=== PATIENT | female | born 2000 | race Two or more races ===

== ENCOUNTER 2023-03-28 20:16 | Emergency (ER) | payer OTHER, BC, MEDICAID, SELFPAY ==
[2023-03-28 20:21] VITALS: BP 122/84; PULSE 73; RESP 18; TEMP 36.6; O2SAT 100
--- NOTE | 2023-03-28 20:21 | ED_ITS ---
HPI - General Adult General: Chief complaint: Dental/Oral Stated complaint: SWOLLEN FACE Time Seen by Provider: 03/28/23 20:20 History of Present Illness: 22-year-old female comes in today with right lower jaw swelling. Patient is very poor dentition. Patient was seen in a walk-in clinic and was suggested to have IV antibiotics. Patient appears nontoxic. Patient does report occasional chills. Patient appears in mild to moderate pain. Patient at this time is in long for cement custody. Review of Systems General: Reports: 10 or more systems reviewed and unremarkable except in HPI and below ENMT: Reports: dental pain Physical Exam Const: COMMON NORMALS: alert HENMT: TEETH & GINGIVA: Yes poor dentition and Yes other (Decayed to the gumline, swelling in the right lower gumline) THROAT: posterior oropharynx normal Neck/C-Spine: COMMON NORMALS: full ROM Resp: COMMON NORMALS: normal respiratory effort and clear to auscultation bilaterally AUSCULTATION: clear to auscultation bilaterally Cardio: COMMON NORMALS: regular rate and regular rhythm RATE: regular rate RHYTHM: regular rhythm Extremity: COMMON NORMALS: full ROM Neuro: SENSORIUM/ORIENTATION: Yes alert Skin: COMMON NORMALS: turgor normal GENERAL SKIN EXAM: turgor normal Course Vital Signs: Vital signs: Vital Signs Temperature 97.8 F 03/28/23 20:21 Pulse Rate 73 03/28/23 20:21 Respiratory Rate 18 03/28/23 20:21 Blood Pressure 122/84 03/28/23 20:21 Pulse Oximetry 100 03/28/23 20:21 Oxygen Delivery Me thod Room Air 03/28/23 20:21 [facility] - General Adult Medical Decision Making 22-year-old female comes in today with complaints of jaw swelling. Patient had been seen at a walk-in clinic and was told that she needed to have IV antibiotics. On exam patient has some gingival swelling and some poor dental repair throughout her teeth. Patient appears nontoxic. Vital signs are normal. Differential diagnosis includes but not limited to dental abscess, gingivitis, retropharyngeal abscess, floor mouth cellulitis. Patient does have a noticeable dental abscess to the right lower jaw. Patient also has very poor repair and may have some significant decay and infection in the jaw. We will give patient 1 g of Rocephin and start on doxycycline and Flagyl with recommendations for follow-up with dental specialist for further evaluation and treatment after the swelling goes down. Patient reported understanding and agreed to plan. Discharge Plan Discharge Patient Disposition: Home Clinical Impression: Dental abscess Condition: Stable Prescriptions: New doxycycline monohydrate 100 mg capsule 100 mg PO BID 10 Days Qty: 20 0RF metronidazole 500 mg tablet 500 mg PO BID 10 Days Qty: 20 0RF Discharge Orders: Discharge ED (Routine); Ordered 03/28/23 Ordered By: Ramon Thorpe Discharge Diet: Usual diet Discharge Activity: Increase activity as tolerated Patient Instructions: Dental Abscess (ED) Activity Restrictions/Additional Instructions: Take antibiotic as directed. Doxycycline with the metronidazole 2 times a day for 10 days. Use acetaminophen and/or ibuprofen as needed for pain. Drink plenty of water with medications. Follow-up with primary care. Doxycycline and metronidazole may cause some nausea it may be necessary to take this with food to help control the nausea. Coding Level of Care Code ED Deputy Program Manager for Ceci Melo
[2023-03-28] MEDS: cefTRIAXone 1,000 MG in water for injection-sterile 2.1 ML 2.1 MG IM (20:53)
[2023-03-28] MEDS: metroNIDAZOLE 500 MG Tablet PO (20:53)
[2023-03-28] MEDS: doxycycline 100 mg Tablet PO (20:53)
== END 2023-03-28 20:59 | disposition home or self-care (01) ==
LOC: ER 20:54
PROVIDERS: Emergency Provider Nurse Practitioner Family
DX: K04.7 Periapical abscess without sinus (principal)
CPT/HCPCS: 96372; 99284; J0696